=== PATIENT | male | born 1980 | race Caucasian/White ===

== ENCOUNTER 2021-11-06 17:22 | Emergency (ER) | payer OTHER ==
[2021-11-06 21:14] LABS: HEMOGLOBIN 13.5 gm/dl (14.0-17.5); RED BLOOD COUNT 4.47 M/UL (4.20-5.50); WHITE BLOOD COUNT 4.4 K/UL (4.5-11.0)
[2021-11-06 22:34] LABS: BUN/CREATININE RATIO 24 (0-10)
== END 2021-11-07 01:14 | disposition home or self-care (01) ==
LOC: ER1 17:22
PROVIDERS: Physician Assistant
DX: U07.1 COVID-19 (principal)
CPT/HCPCS: 0240U; 71045; 80053; 81001; 82550; 82553; 83605; 83690; 83874; 83880; 84484; 85025; 85379; 85652; 86140; 87086; 93005; 94664; 94760; 99285; Q9967